=== PATIENT | female | born 2000 | race African-American/Black ===

== ENCOUNTER 2020-07-16 21:02 | Emergency (ER) | payer SELFPAY ==
[~2020-07-16] VITALS: Ht 170.2 cm; Wt 79.1 kg
[2020-07-16 21:16] VITALS: Ht 170.2 cm; Wt 79.1 kg
[2020-07-16 22:08] LABS: BILIRUBIN NEGATIVE (NEGATIVE); KETONE NEGATIVE (NEGATIVE); NITRITE NEGATIVE (NEGATIVE); UROBILINOGEN NORMAL mg/dL (< 2)
[2020-07-16 22:09] LABS: BACTERIA MK HPF (NONE SEEN); EPITHELIAL CELLS 0-5 /hpf (0-5); WHITE CELLS - URINE 0-5 HPF (0-4)
[2020-07-16 22:10] LABS: HCG URINE NEGATIVE (NEGATIVE)
[2020-07-16 22:21] LABS: HEMATOCRIT 36.5 % (36.0-48.0); HEMOGLOBIN 11.7 g/dL (12-16); MCH 28.7 pg (26.0-34.0); MCHC 32.1 g/dL (31.0-37.0); MCV 89.7 fL (80.0-100.0); MEAN PLATELET VOLUME 9.4 fL (7.4-10.4); PLATELET COUNT 334 10x3/uL (130-400); RBC 4.07 10x6/uL (4.00-5.40); RDW 14.4 % (11.5-14.5); WBC 5.1 10x3/uL (4.8-10.8)
[2020-07-16 22:27] LABS: CALC OSMOLALITY 275 mosm/kg (275-300); CALCIUM 8.9 mg/dL (8.5-10.1); CARBON DIOXIDE 28.9 mmol/L (21.0-32.0); CHLORIDE - SERUM 106 mmol/L (98-107); CREATININE - SERUM 0.9 mg/dL (0.6-1.3); GLUCOSE 85 mg/dL (74-106); POTASSIUM - SERUM 3.7 mmol/L (3.5-5.1); SODIUM 138 mmol/L (136-145); UREA NITROGEN 14 mg/dL (7-18); eGFR NON AFRICAN AMERICAN 85 mL/min (90-120)
[2020-07-16 22:35] LABS: ALBUMIN 3.5 g/dL (3.4-5.0); ALKALINE PHOSPHATASE 48 U/L (30-120); ALT (SGPT) 21 U/L (10-68); BILIRUBIN - TOTAL 0.16 mg/dL (0.2-1.3); PROTEIN - SERUM 7.6 g/dL (6.4-8.2); TROPONIN-I < 0.017 ng/mL (0.000-0.060)
[2020-07-16 22:52] LABS: APTT 30.4 SECONDS (22.8-39.4); INR 0.96 (0.85-1.17); PROTIME 12.7 SECONDS (11.6-15.0)
[2020-07-16 22:53] LABS: D-DIMER-QUANTITATIVE < 0.27 ug/mLFEU (0.20-0.54)
[2020-07-16 22:59] LABS: EOSINOPHILS 1 % (0-7); LYMPHOCYTES 66 % (15-50); MONOCYTES 8 % (2-11); NEUTROPHILS 25 % (40-80); PLATELET ESTIMATE NORMAL
[2020-07-16] MEDS ORDERED: MEDROL DOSE PACK4 MG PO (23:14)
[2020-07-16 23:54] VITALS: BP 104/63
== END 2020-07-16 23:41 | disposition home or self-care (01) ==
LOC: D.ER 21:02
PROVIDERS: Emergency Medicine
DX: U07.1 COVID-19 (principal); R07.9 Chest pain, unspecified; R05 Cough